=== PATIENT | male | born 1955 | race Caucasian/White ===

== ENCOUNTER → 2020-09-28 08:33 | Outpatient (BNVA) | payer SELFPAY | PROVIDERS: PCP Internal Medicine Sports Medicine; Visit Provider Internal Medicine | DX: Z02.79 Encounter for issue of other medical certificate (principal) ==

== ENCOUNTER → 2021-07-01 13:51 | Outpatient (BNVA) | payer BC, SELFPAY | PROVIDERS: PCP Physician Assistant Medical; Referring Provider Internal Medicine; Visit Provider Internal Medicine Cardiovascular Disease | DX: I48.0 Paroxysmal atrial fibrillation (principal); I45.10 Unspecified right bundle-branch block; I10 Essential (primary) hypertension | CPT/HCPCS: 93005 ==

== ENCOUNTER → 2021-09-19 07:52 | Outpatient (BNVA) | payer SELFPAY | PROVIDERS: PCP Physician Assistant Medical; Visit Provider Physician Assistant Medical | DX: Z02.79 Encounter for issue of other medical certificate (principal) ==

== ENCOUNTER → 2021-10-14 12:21 | Outpatient (BNVA) | payer BC, SELFPAY | PROVIDERS: PCP Physician Assistant Medical; Visit Provider Internal Medicine Cardiovascular Disease ==

== ENCOUNTER → 2022-09-11 08:02 | Outpatient (BNVA) | payer SELFPAY | PROVIDERS: PCP Physician Assistant Medical; Visit Provider Internal Medicine | DX: Z02.79 Encounter for issue of other medical certificate (principal) ==